=== PATIENT | male | born 1960 | race Caucasian/White ===

== ENCOUNTER 2017-03-30 05:44 | Day surgery (SDC) | payer BC ==
[~2017-03-30 05:44] MED LIST: DICLOFENAC 0.1% 2.5 ML OPH LEFT EYE
[2017-03-30] MEDS ORDERED: TROPICAMIDE 1% 3 ML OPH (05:46)
[2017-03-30] MEDS ORDERED: SOD CHLORIDE 0.9% 1,000 ML IV (06:00)
[2017-03-30] MEDS: CYCLOPENTOLATE/PHENYLEPH 2 ML OPH LEFT EYE (06:12)
[2017-03-30] MEDS: MOXIFLOXACIN 0.5% 3 ML OPH LEFT EYE (06:12)
[2017-03-30] MEDS: TROPICAMIDE 1% 3 ML OPH LEFT EYE (06:12)
[2017-03-30] MEDS: DICLOFENAC 0.1% 2.5 ML OPH LEFT EYE (06:12)
[2017-03-30] MEDS ORDERED: DEXAMETHASONE 4 MG/ML 1 ML INJ (06:26)
[2017-03-30] MEDS ORDERED: LIDOCAINE 4% (MPF) 5 ML INJ (06:26)
[2017-03-30] MEDS ORDERED: CARBACHOL 0.01% 1.5 ML OPH INJ (06:26)
[2017-03-30] MEDS ORDERED: GENTAMICIN 80 MG INJ (06:26)
[2017-03-30] MEDS ORDERED: CEFAZOLIN 1 GM INJ (06:26)
[2017-03-30] MEDS ORDERED: EPINEPHrine 1 MG INJ (06:26)
[2017-03-30] MEDS ORDERED: PROPOFOL 20 ML (06:50)
[2017-03-30] MEDS ORDERED: LIDOCAINE 100 MG SYRINGE (06:51)
[2017-03-30] MEDS ORDERED: hydrALAzine 20 MG INJ IV (07:00)
[2017-03-30] MEDS ORDERED: DIPHENHYDRAMINE 50 MG INJ IV (07:00)
[2017-03-30] MEDS ORDERED: morphine (1 MG/ML) 10ML SYRINGE IV ×3 (07:00)
[2017-03-30] MEDS ORDERED: EPHEDrine SULFATE 50 MG/5 ML SYG IV (07:00)
[2017-03-30] MEDS ORDERED: MIDAZOLAM 1 MG/ML 2 ML INJ IV (07:00)
[2017-03-30] MEDS ORDERED: FENTAnyl 50 MCG/ML VIAL IV ×2 (07:00)
[2017-03-30] MEDS ORDERED: LABETALOL HCL 20MG INJ IV (07:00)
[2017-03-30] MEDS ORDERED: ONDANSETRON 4 MG INJ IV (07:00)
[2017-03-30] MEDS ORDERED: OXYCODONE/ACETAMINOPHEN (5/325) TAB PO (07:00)
[2017-03-30] MEDS ORDERED: MEPERIDINE 25 MG INJ IV (07:00)
[2017-03-30] MEDS ORDERED: HYDROmorphONE (0.2 MG/ML) 10ML SYG IV ×3 (07:00)
[2017-03-30] MEDS ORDERED: ATROPINE 1 MG/10 ML SYRINGE IV (07:00)
[2017-03-30] MEDS: DEXAMETHASONE 4 MG/ML 1 ML INJ INJ (07:15)
[2017-03-30] MEDS: CEFAZOLIN 1 GM INJ INJ (07:15)
[2017-03-30] MEDS: CARBACHOL 0.01% 1.5 ML OPH INJ IO (07:15)
[2017-03-30] MEDS: OXYCODONE/ACETAMINOPHEN (5/325) TAB PO (08:46)
== END 2017-03-30 09:19 | disposition home or self-care (01) ==
LOC: SDS 05:44
DX: H25.041 Posterior subcapsular polar age-related cataract, right eye (principal)
CPT/HCPCS: 66984